=== PATIENT | male | born 1965 | race Caucasian/White ===

== ENCOUNTER 2019-01-24 08:08 | Day surgery (SDC) | payer OTHER ==
[~2019-01-24] VITALS: Ht 172.7 cm; Wt 88.6 kg
[~2019-01-24 08:08] MED LIST: AZIT250 PO; FAMO20 PO; INDO50 PO; Keflex500 MG PO; Norco 5-325 Ta1 EACH PO; TRAM50 PO
== END 2019-01-24 10:35 | disposition home or self-care (01) ==
LOC: ORSCSDS 08:08
PROVIDERS: Internal Medicine Gastroenterology
PROC: 0DBN8ZX Excision of Sigmoid Colon, Via Natural or Artificial Opening Endoscopic, Diagnostic (ICD-10-PCS; principal; 2019-01-24 09:30)
DX: Z12.11 Encounter for screening for malignant neoplasm of colon (principal); K63.5 Polyp of colon; K64.1 Second degree hemorrhoids; E78.5 Hyperlipidemia, unspecified; F17.210 Nicotine dependence, cigarettes, uncomplicated; K57.30 Diverticulosis of large intestine without perforation or abscess without bleeding
CPT/HCPCS: 88305; J2704; J7120

== ENCOUNTER 2021-01-03 14:50 | Emergency (ER) | payer OTHER ==
[~2021-01-03] VITALS: Ht 172.7 cm; Wt 79.4 kg
[~2021-01-03 14:50] MED LIST changes: +ERGO400 PO; +FISH OIL 1,2001 EAC4 PO
== END 2021-01-03 18:36 | disposition left against medical advice (07) ==
LOC: ER 14:50
DX: R50.9 Fever, unspecified (principal); R05 Cough; R51.9 Headache, unspecified; Z53.21 Procedure and treatment not carried out due to patient leaving prior to being seen by health care provider
CPT/HCPCS: 96372; 99283; J1885

== ENCOUNTER 2021-01-05 05:45 | Emergency (ER) | payer OTHER ==
[~2021-01-05] VITALS: Ht 172.7 cm; Wt 77.1 kg
[2021-01-05 07:01] LABS: BASOPHILS ABSOLUTE AUTO 0.04 K/mm3 (0.00-0.23); BASOPHILS PERCENT AUTO 0 % (0-2); EOSINOPHILS ABSOLUTE AUTO 0.17 K/mm3 (0.00-0.68); EOSINOPHILS PERCENT AUTO 2 % (0-6); Hematocrit 39.8 % (37.0-53.0); Hemoglobin 14.1 g/dL (13.5-17.5); IMMATURE GRAN ABSOLUTE AUTO 0.03 K/mm3 (0.00-0.10); IMMATURE GRAN PERCENT AUTO 0 % (0-1); LYMPHOCYTES ABSOLUTE AUTO 1.33 K/mm3 (0.84-5.20); LYMPHOCYTES PERCENT AUTO 11 % (21-46); MONOCYTES PERCENT AUTO 8 % (4-13); Mean Corpuscular HGB 32.8 pg (26.0-34.0); Mean Corpuscular HGB Conc 35.4 g/dL (31.5-36.5); Mean Corpuscular Volume 93 fL (80-100); NEUTROPHILS ABSOLUTE AUTO 9.17 K/mm3 (1.96-9.15); NEUTROPHILS PERCENT AUTO 79 % (41-73); Platelet Count 335 K/mm3 (150-400); RDW Coefficient Variation 11.7 % (11.7-14.2); RDW Standard Deviation 39.6 fL (35.1-46.3); White Blood Cell Count 11.64 K/mm3 (4.00-11.30)
[2021-01-05 07:23] LABS: Alanine Aminotransfer (ALT/SGP 27 U/L (12-78); Albumin, Blood 3.5 g/dL (3.4-5.0); Albumin/Globulin Ratio 1.1 (0.8-1.8); Alk Phos 59 U/L (50-136); Anion Gap 3 mmol/L (6-16); Aspartate Aminotrans (AST/SGOT 16 U/L (12-37); Bilirubin, Total 0.7 mg/dL (0.1-1.0); Blood Urea Nitrogen 18 mg/dL (8-24); Bun/Creatinine Ratio 25.2 (12.0-20.0); CO2, Blood 27 mmol/L (21-32); Calcium, Blood 8.7 mg/dL (8.5-10.1); Chloride, Blood 101 mmol/L (98-108); Creatinine, Blood 0.72 mg/dL (0.60-1.20); Globulin, Blood 3.1 g/dL (2.2-4.0); Glomerular Filtration Rate >60 (60-); Glucose, Blood 100 mg/dL (70-99); Sodium, Blood 131 mmol/L (136-145); Total Protein, Blood 6.6 g/dL (6.4-8.2)
[2021-01-05 07:33] LABS: Influenza A, PCR NEGATIVE (NEGATIVE); Influenza B, PCR NEGATIVE (NEGATIVE); Resp Syncytial Virus, PCR NEGATIVE (NEGATIVE); SARS-Cov-2 (COVID-19) PCR, MMC NEGATIVE (NEGATIVE)
[2021-01-05] MEDS ORDERED: PROM25 PO (09:15)
[2021-01-05] MEDS ORDERED: ZEBUTAL 50-3251 EAC1 PO (09:15)
[2021-01-05] MEDS ORDERED: Amoxicillin500 MG PO (22:16)
[2021-01-05] MEDS ORDERED: ONDA4ODT MM (22:16)
== END 2021-01-05 09:26 | disposition home or self-care (01) ==
LOC: ER 05:45
PROVIDERS: Emergency Medicine
DX: B34.9 Viral infection, unspecified (principal); Z87.891 Personal history of nicotine dependence; Z20.822 Contact with and (suspected) exposure to COVID-19
CPT/HCPCS: 0241U; 36415; 36600; 70450; 70491; 80048; 80053; 82803; 85025; 96361; 96374; 96374-59; 96375; 99284-25; A9270; J1170; J1885; J2405; J2765; J7030; J7120; Q9967

== ENCOUNTER 2021-05-05 03:04 | Observation (INO) | payer OTHER ==
[~2021-05-05] VITALS: Ht 172.7 cm; Wt 82.0 kg
[~2021-05-05 03:04] MED LIST changes: +Amoxicillin500 MG PO; +ONDA4ODT MM; +PROM25 PO; +ZEBUTAL 50-3251 EAC1 PO
[2021-05-05 03:33] LABS: BASOPHILS ABSOLUTE AUTO 0.09 K/mm3 (0.00-0.23); BASOPHILS PERCENT AUTO 1 % (0-2); EOSINOPHILS ABSOLUTE AUTO 0.31 K/mm3 (0.00-0.68); EOSINOPHILS PERCENT AUTO 3 % (0-6); Hematocrit 41.2 % (37.0-53.0); Hemoglobin 13.9 g/dL (13.5-17.5); IMMATURE GRAN ABSOLUTE AUTO 0.03 K/mm3 (0.00-0.10); IMMATURE GRAN PERCENT AUTO 0 % (0-1); LYMPHOCYTES PERCENT AUTO 29 % (21-46); MONOCYTES PERCENT AUTO 10 % (4-13); Mean Corpuscular HGB 32.5 pg (26.0-34.0); Mean Corpuscular HGB Conc 33.7 g/dL (31.5-36.5); Mean Corpuscular Volume 96 fL (80-100); Mean Platelet Volume 9.2 fL (9.1-12.4); NEUTROPHILS ABSOLUTE AUTO 5.43 K/mm3 (1.96-9.15); NEUTROPHILS PERCENT AUTO 57 % (41-73); Platelet Count 356 K/mm3 (150-400); RDW Coefficient Variation 12.2 % (11.7-14.2); RDW Standard Deviation 43.1 fL (35.1-46.3); Red Blood Cell Count 4.28 M/mm3 (4.30-5.90); White Blood Cell Count 9.46 K/mm3 (4.00-11.30)
[2021-05-05 03:53] LABS: Alanine Aminotransfer (ALT/SGP 42 U/L (12-78); Albumin, Blood 3.2 g/dL (3.4-5.0); Alk Phos 107 U/L (50-136); Anion Gap 3 mmol/L (6-16); Aspartate Aminotrans (AST/SGOT 41 U/L (12-37); Bilirubin, Total 0.3 mg/dL (0.1-1.0); Blood Urea Nitrogen 12 mg/dL (8-24); Bun/Creatinine Ratio 14.6 (12.0-20.0); CO2, Blood 28 mmol/L (21-32); Calcium, Blood 8.4 mg/dL (8.5-10.1); Chloride, Blood 109 mmol/L (98-108); Creatinine, Blood 0.82 mg/dL (0.60-1.20); Globulin, Blood 3.2 g/dL (2.2-4.0); Glomerular Filtration Rate >60 (60-); Glucose, Blood 113 mg/dL (70-99); Potassium, Blood 4.3 mmol/L (3.5-5.5); Sodium, Blood 140 mmol/L (136-145); Total Protein, Blood 6.4 g/dL (6.4-8.2); Troponin I <0.015 ng/mL (0.000-0.040)
[2021-05-05 06:36] LABS: LDL/HDL RATIO 3.1; Very Low Density Lipoprot Chol 37 mg/dL (6-32)
[2021-05-05 06:37] LABS: Cholesterol 195 mg/dL (50-200); HDL Cholesterol 39 mg/dL (>39); Low Density Lipoprotein Chol 119 mg/dL (0-110); Triglycerides 185 mg/dL (30-160)
--- NOTE | 2021-05-05 06:50 | NUR ---
ARRIVAL TO UNIT PATIENT ARRIVED TO UNIT FROM ER VIA GURNEY WITH ONE PERSONAL BELONGINGS BAG. SELF TRANSFERRED TO BED INDEPENDENTLY. C/O CHEST PAIN BUT "NOT BAD WHEN I GOT HERE". A/O, SETTLED TO ROOM, CALL LIGHT IN REACH. INDEPENDENT IN ROOM. WCTM.
[2021-05-05] MEDS ORDERED: FISH OIL 1,2001 EAC1 PO (14:35)
[2021-05-05] MEDS ORDERED: Acerola C500 MG PO (14:36)
[2021-05-05] MEDS ORDERED: ATOR40TA PO (17:09)
--- NOTE | 2021-05-05 18:22 | NUR ---
DC RN NOTE: PT A/O X 4 AT TIME OF DC. IV REMOVED FROM RAC W/NO S/S OF PHLEBITIS/INFECTION. PT EDUCATED ON DC MEDS/HEART ATTACK AND CORONARY ARTERY DISEASE. PT VU. PRESENT AT TIME OF DC. PT AMBULATED TO VEHICLE ESCORTED BY IAN THOMPSON. PT DECLINED WC TRANSPORT. PT STEADY ON FEET. BELONGINGS SENT WITH PT.
== END 2021-05-05 18:22 | disposition home or self-care (01) ==
LOC: ER 03:04 → MEDS 03:05
PROVIDERS: Emergency Medicine; ADMIT Family Medicine
DX: R07.89 Other chest pain (principal); I65.23 Occlusion and stenosis of bilateral carotid arteries; H53.8 Other visual disturbances; E78.5 Hyperlipidemia, unspecified; F17.210 Nicotine dependence, cigarettes, uncomplicated; I10 Essential (primary) hypertension
CPT/HCPCS: 36415; 71046; 78452; 80053; 80061; 84484; 85025; 93005; 93010; 93017; 93306; 93880; 96374; 96376; 99285-25; A9270; A9500; G0378; J0706; J2785; J3010

== ENCOUNTER 2021-11-19 11:38 | Day surgery (SDC) | payer OTHER ==
[~2021-11-19] VITALS: Ht 172.7 cm; Wt 88.6 kg
[~2021-11-19 11:38] MED LIST changes: +ATOR40TA PO; +Acerola C500 MG PO; +FISH OIL 1,2001 EAC1 PO
[2021-11-19] MEDS ORDERED: Aspir 8181 MG PO (11:55)
[2021-11-19] MEDS ORDERED: OXYC5 PO (11:55)
--- NOTE | 2021-11-19 14:39 | NUR ---
11/19/21 1439 Melinda Tejeda 1MG OF EPI ADDED TO EACH OF THE FIRST 3 BAGS OF LR USED FOR JOINT IRRIGATION.
== END 2021-11-19 16:30 | disposition home or self-care (01) ==
LOC: ORSCSDS 11:38
PROVIDERS: Orthopaedic Surgery
PROC: 0LS44ZZ Reposition Left Upper Arm Tendon, Percutaneous Endoscopic Approach (ICD-10-PCS; principal; 2021-11-19 13:00)
PROC: 0RNK4ZZ Release Left Shoulder Joint, Percutaneous Endoscopic Approach (ICD-10-PCS; principal; 2021-11-19 13:00)
PROC: 0LQ24ZZ Repair Left Shoulder Tendon, Percutaneous Endoscopic Approach (ICD-10-PCS; principal; 2021-11-19 13:00)
DX: M75.112 Incomplete rotator cuff tear or rupture of left shoulder, not specified as traumatic (principal); M75.22 Bicipital tendinitis, left shoulder; M75.42 Impingement syndrome of left shoulder; Z87.891 Personal history of nicotine dependence; Z79.899 Other long term (current) drug therapy; Z79.82 Long term (current) use of aspirin
CPT/HCPCS: A9270; C1713; J0171; J0690; J1100; J1885; J2250; J2405; J2704; J2710; J2795; J3010; J7120

== ENCOUNTER → 2023-10-09 | Outpatient (CLI) | payer OTHER ==
[~2023-10-09] MED LIST changes: +Aspir 8181 MG PO; +OXYC5 PO; +Pepcid40 MG PO
[2023-10-14 12:04] LABS: COTININE, URN, SCREEN Negative ng/mL (Cutoff 100)
== END ==
LOC: LAB 14:07 → LAB SHORT 14:07
PROVIDERS: Physician Assistant
DX: M19.019 Primary osteoarthritis, unspecified shoulder (principal)

== ENCOUNTER 2023-10-11 19:23 | Emergency (ER) | payer OTHER ==
[~2023-10-11] VITALS: Ht 172.7 cm; Wt 83.9 kg
[~2023-10-11 19:23] MED LIST changes: -Pepcid40 MG PO
[2023-10-11 19:51] LABS: BASOPHILS ABSOLUTE AUTO 0.11 K/mm3 (0.00-0.23); BASOPHILS PERCENT AUTO 1 % (0-2); EOSINOPHILS ABSOLUTE AUTO 0.18 K/mm3 (0.00-0.68); EOSINOPHILS PERCENT AUTO 2 % (0-6); Hematocrit 41.6 % (37.0-53.0); Hemoglobin 14.5 g/dL (13.5-17.5); IMMATURE GRAN ABSOLUTE AUTO 0.03 K/mm3 (0.00-0.10); IMMATURE GRAN PERCENT AUTO 0 % (0-1); LYMPHOCYTES ABSOLUTE AUTO 2.87 K/mm3 (0.84-5.20); LYMPHOCYTES PERCENT AUTO 26 % (21-46); MONOCYTES PERCENT AUTO 9 % (4-13); Mean Corpuscular HGB 32.4 pg (26.0-34.0); Mean Corpuscular HGB Conc 34.9 g/dL (31.5-36.5); Mean Corpuscular Volume 93 fL (80-100); Mean Platelet Volume 9.3 fL (9.1-12.4); NEUTROPHILS PERCENT AUTO 63 % (41-73); Platelet Count 346 K/mm3 (150-400); RDW Coefficient Variation 12.2 % (11.7-14.2); RDW Standard Deviation 41.4 fL (35.1-46.3); Red Blood Cell Count 4.48 M/mm3 (4.30-5.90); White Blood Cell Count 11.19 K/mm3 (4.00-11.30)
[2023-10-11 20:12] LABS: Albumin, Blood 3.8 g/dL (3.4-5.0); Albumin/Globulin Ratio 1.1 (0.8-1.8); Bilirubin, Total 0.3 mg/dL (0.1-1.0); Bun/Creatinine Ratio 18.5 (12.0-20.0); Creatinine, Blood 0.87 mg/dL (0.60-1.20); Globulin, Blood 3.4 g/dL (2.2-4.0); Potassium, Blood 3.9 mmol/L (3.5-5.5); Total Protein, Blood 7.2 g/dL (6.4-8.2)
[2023-10-12] MEDS ORDERED: Pepcid40 MG PO (00:08)
[2023-10-12 00:25] VITALS: BP 123/70
== END 2023-10-12 00:26 | disposition home or self-care (01) ==
LOC: ER 19:23
PROVIDERS: Student in an Organized Health Care Education/Training Program
DX: R07.89 Other chest pain (principal); I45.2 Bifascicular block; Z88.6 Allergy status to analgesic agent; Z88.8 Allergy status to other drugs, medicaments and biological substances; Z79.899 Other long term (current) drug therapy; Z79.82 Long term (current) use of aspirin; Z87.891 Personal history of nicotine dependence
CPT/HCPCS: 80053; 84484; 85025; 93005; 93010; 99285-25; A9270

== ENCOUNTER → 2023-10-16 | Outpatient (CLI) | payer OTHER ==
[~2023-10-16] MED LIST changes: +Pepcid40 MG PO
== END ==
LOC: LAB 07:42 → LAB SHORT 07:42
DX: M79.89 Other specified soft tissue disorders (principal)
CPT/HCPCS: 88305

== ENCOUNTER 2023-11-02 09:54 | Emergency (ER) | payer OTHER ==
[~2023-11-02] VITALS: Ht 172.7 cm; Wt 83.9 kg
[2023-11-02 10:57] LABS: BASOPHILS ABSOLUTE AUTO 0.08 K/mm3 (0.00-0.23); BASOPHILS PERCENT AUTO 1 % (0-2); EOSINOPHILS ABSOLUTE AUTO 0.23 K/mm3 (0.00-0.68); EOSINOPHILS PERCENT AUTO 3 % (0-6); Hematocrit 42.5 % (37.0-53.0); Hemoglobin 14.4 g/dL (13.5-17.5); IMMATURE GRAN ABSOLUTE AUTO 0.03 K/mm3 (0.00-0.10); IMMATURE GRAN PERCENT AUTO 0 % (0-1); LYMPHOCYTES ABSOLUTE AUTO 2.12 K/mm3 (0.84-5.20); LYMPHOCYTES PERCENT AUTO 24 % (21-46); MONOCYTES ABSOLUTE AUTO 0.56 K/mm3 (0.16-1.47); MONOCYTES PERCENT AUTO 7 % (4-13); Mean Corpuscular HGB 31.9 pg (26.0-34.0); Mean Corpuscular HGB Conc 33.9 g/dL (31.5-36.5); Mean Corpuscular Volume 94 fL (80-100); Mean Platelet Volume 9.5 fL (9.1-12.4); NEUTROPHILS ABSOLUTE AUTO 5.66 K/mm3 (1.96-9.15); NEUTROPHILS PERCENT AUTO 65 % (41-73); Platelet Count 367 K/mm3 (150-400); RDW Coefficient Variation 12.4 % (11.7-14.2); RDW Standard Deviation 43.3 fL (35.1-46.3); Red Blood Cell Count 4.52 M/mm3 (4.30-5.90); White Blood Cell Count 8.68 K/mm3 (4.00-11.30)
[2023-11-02 11:15] LABS: Albumin/Globulin Ratio 1.1 (0.8-1.8); Bilirubin, Total 0.4 mg/dL (0.1-1.0); Bun/Creatinine Ratio 14.3 (12.0-20.0); Calcium, Blood 9.3 mg/dL (8.5-10.1); Creatinine, Blood 0.91 mg/dL (0.60-1.20); Globulin, Blood 3.5 g/dL (2.2-4.0); Potassium, Blood 4.1 mmol/L (3.5-5.5); Total Protein, Blood 7.5 g/dL (6.4-8.2)
[2023-11-02 12:23] VITALS: BP 129/77
== END 2023-11-02 12:59 | disposition home or self-care (01) ==
LOC: ER 09:54
PROVIDERS: Physician Assistant
DX: R07.9 Chest pain, unspecified (principal); Z87.891 Personal history of nicotine dependence; Z88.6 Allergy status to analgesic agent; Z88.8 Allergy status to other drugs, medicaments and biological substances; Z79.899 Other long term (current) drug therapy
CPT/HCPCS: 71046; 80053; 83690; 84484; 85025; 93005; 93010; 99285-25

== ENCOUNTER 2023-11-24 07:11 | Day surgery (SDC) | payer OTHER ==
[~2023-11-24] VITALS: Ht 172.7 cm; Wt 86.2 kg
[2023-11-24] VITALS (10 sets, daily range): BP systolic 94–124; BP diastolic 48–91
[2023-11-24] MEDS ORDERED: NS 1,000 ML IV ONE ×2 (07:15→08:03)
[2023-11-24] MEDS ORDERED: Heparin Sodium 1000 Units/ML 10ML MDV ONE ×3 (07:15→08:03)
[2023-11-24] MEDS ORDERED: NS 500 ML IV ONE (07:15)
[2023-11-24] MEDS ORDERED: Nitroglycerin 2 MG/20 ML BTL ONE (07:16)
[2023-11-24] MEDS ORDERED: Prinivil10 MG PO (07:28)
[2023-11-24] MEDS ORDERED: EZET10 PO (07:33)
[2023-11-24] MEDS ORDERED: FentaNYL Citrate 50 MCG/ML 2 ML Injection ONE ×2 (08:03→08:56)
[2023-11-24] MEDS ORDERED: Midazolam HCl 1MG / ML 2ML Vial ONE ×2 (08:03→08:56)
--- NOTE | 2023-11-24 10:13 | NUR ---
PT RETURNS FROM MEDICAL EDITOR ALERT AND ORIENTED. VSS. PT. LEFT GROINS SITE WNL, NO SWELLING NO HEMATOMA NO OOZING AT THIS TIME. TENDER TO PALPATION. PT INSTRUCTED ON RECOVERY PROCESS, PT VERBALIZED UNDERSTANDING. PROVIDED ASSISTANCE WITH MEAL TRAY AND FLUIDS. ZAIRA AT THIS TIME.
[2023-11-24] MEDS ORDERED: OxyCODONE HCL 5 MG TAB ONE (10:49)
[2023-11-24] MEDS ORDERED: OxyCODONE HCL 5 MG TAB PO ONE (10:50)
--- NOTE | 2023-11-24 12:15 | NUR ---
SITE ASSESSED FREQUENTLY AND REMAINS UNCHANGED. PT. ADVANCED TO 45 DEGREES, SITTING UP IN BED EATING LUNCH. SITE REASSESSED AFTER ADJUSTING HOB AND REMAINS UNCHANGED FROM PREVIOUS ASSESSMENT, SOFT, NON TENDER, NO OOZING OR HEMATOMA.
--- NOTE | 2023-11-24 12:30 | NUR ---
DR. TELLEZ IN TO TALK WITH PT. ADDTIONAL MEDICATIONS OF PLAVIX AND XARELTO TO BE ADDED TO PT DAILY MED LIST PER DR. TELLEZ. ORDER WRITTEN AND CALLED TO [facility] PER PT REQUEST. PT VSS. DISCHARGE INSTRUCTIONS REVIEWED IN DETAIL. NO QUESTIONS. PT. SITE REMAINS UNCHAGED, PT UP TO USE BATHROOM. ABLE TO AMBULATE W.O DIFFICULTY.
[2023-11-24] MEDS ORDERED: CLOP75 PO (12:36)
[2023-11-24] MEDS ORDERED: XARELTO20 MG PO (12:36)
--- NOTE | 2023-11-24 12:45 | NUR ---
PT ABLE TO GET SELF DRESSED. IV REMOVED, CATHETER INTACT. PT L GROIN SITE RE ASSESSED AFTER PT WAS DRESSED AND REMAINS UNCHANGED FROM PREVIOUS ASSESSMENTS. PT. VSS. PT TO PICK HIM UP, ALL BELONGINGS GATHERED BY PATIENT. PT. TAKEN TO EXIT VIA WHEELCHAIR WITH DISCHARGE INSTRUCTIONS.
== END 2023-11-24 13:00 | disposition home or self-care (01) ==
LOC: MHTC 07:11
DX: I73.9 Peripheral vascular disease, unspecified (principal); E78.5 Hyperlipidemia, unspecified; Z78.9 Other specified health status; I10 Essential (primary) hypertension
CPT/HCPCS: 76937; 99152; 99153; A9270; C1714; C1725; C1753; C1760; C1769; C1887; C1894; C2623; J1644; J2250; J3010; J7030; J7050; Q9967

== ENCOUNTER 2024-04-25 06:33 | Day surgery (SDC) | payer OTHER ==
[2024-04-25] VITALS (12 sets, daily range): BP systolic 105–160; BP diastolic 75–93
[~2024-04-25] VITALS: Ht 172.7 cm; Wt 84.5 kg
[~2024-04-25 06:33] MED LIST changes: -Acerola C500 MG PO; +C COMPLEX1000 M1 PO; +CLOP75 PO; +EZET10 PO; +FISH OIL 1,0001 EA10 PO; +Lactated Ringer's 1,000 ML IV SCH; +OMEP20ER PO; +Percocet 5-3251 EACH PO; +Prinivil10 MG PO; +REVATIO10 MG/1 ML PO; +XARELTO20 MG PO
[2024-04-25] MEDS ORDERED: Midazolam HCl 1MG / ML 2ML Vial ONE (07:00)
[2024-04-25] MEDS ORDERED: propofoL 20 ML IV ONE (07:00)
[2024-04-25] MEDS ORDERED: Benzocaine Oral Spray 0.5ML UD ONE (07:01)
--- NOTE | 2024-04-25 07:14 | NUR ---
Ambulatory in Day Surgery WITH STEADY GAIT. History, Chart, Medications and Allergies reviewed before start of procedure. Patient States Post-Procedure ride home has been arranged WITH . BELONGINGS PLACED IN PT BAG AND LEFT IN PT'S BAY. Pre-Op teaching done. Pt verbalizes understanding.
--- NOTE | 2024-04-25 07:32 | NUR ---
04/25/24 0732 Carley March HISTORY, CHART, MEDICATIONS AND ALLERGIES REVIEWED BEFORE START OF PROCEDURE. PATIENT CONFIRMS NPO STATUS AND AGREES WITH SCHEDULED PROCEDURE. 3-LEAD EKG REVIEWED WITH PHYSICIAN PRIOR TO START OF PROCEDURE. MONITOR INTACT WITH CONTINUOUS PULSE OXIMETRY,CAPNOGRAPHY, 3-LEAD EKG, INTERMITTENT BP. SUPPLEMENTAL O2 TO BE TITRATED THROUGHOUT PROCEDURE TO MAINTAIN O2 SATURATION ABOVE 90%. PATIENT DETERMINED TO BE ASA APPROPRIATE FOR PROPOFOL SEDATION PRIOR TO START OF PROCEDURE BY DR. CHAMBERS. MALLAMPATI CLASS 2 AIRWAY: COMPLETE VISUALIZATION OF THE UVULA.
--- NOTE | 2024-04-25 08:23 | NUR ---
DISCHARGE NOTE PT A&OX4, VSS, BREATHING RA, NO COMPLAINTS, TOLERATING PO FLUDIS. Patient up to Ambulate independently. Gait steady.PT DRESSED INDEPENDENTLY. Discharge instructions reviewed with patient. Patient verbalizes understanding. Copy given to patient to take home. Discharged via wheelchair to private car for ride home.
== END 2024-04-25 08:19 | disposition home or self-care (01) ==
LOC: ORSCMMR 06:33 → ORD 07:30 → ORSCMMR 08:19
PROVIDERS: Internal Medicine Gastroenterology
PROC: 0DB98ZX Excision of Duodenum, Via Natural or Artificial Opening Endoscopic, Diagnostic (ICD-10-PCS; principal; 2024-04-25 07:30)
PROC: 0DB58ZX Excision of Esophagus, Via Natural or Artificial Opening Endoscopic, Diagnostic (ICD-10-PCS; principal; 2024-04-25 07:30)
PROC: 0DB48ZX Excision of Esophagogastric Junction, Via Natural or Artificial Opening Endoscopic, Diagnostic (ICD-10-PCS; principal; 2024-04-25 07:30)
PROC: 0DB68ZX Excision of Stomach, Via Natural or Artificial Opening Endoscopic, Diagnostic (ICD-10-PCS; principal; 2024-04-25 07:30)
DX: K21.00 Gastro-esophageal reflux disease with esophagitis, without bleeding (principal); R10.13 Epigastric pain; K29.70 Gastritis, unspecified, without bleeding; K44.9 Diaphragmatic hernia without obstruction or gangrene; Z86.010 Personal history of colon polyps; I73.9 Peripheral vascular disease, unspecified; I10 Essential (primary) hypertension; Z79.01 Long term (current) use of anticoagulants; Z79.899 Other long term (current) drug therapy
CPT/HCPCS: 88305; 88342; A9270; J2250; J2704; J7120

== ENCOUNTER 2024-07-14 13:14 | Inpatient (IN) | payer OTHER ==
[~2024-07-14] VITALS: Ht 172.7 cm; Wt 82.9 kg
[2024-07-14] VITALS (7 sets, daily range): BP systolic 105–146; BP diastolic 54–82
[~2024-07-14 13:14] MED LIST changes: -Lactated Ringer's 1,000 ML IV SCH
[2024-07-14] MEDS ORDERED: Norco 10-325 T1 EACH PO (13:29)
[2024-07-14] MEDS ORDERED: FentaNYL Citrate 50 MCG/ML 2 ML Injection IV PRN (13:50)
[2024-07-14] MEDS ORDERED: Acetaminophen 325 MG TABLET PO PRN (13:50)
[2024-07-14] MEDS ORDERED: FLU VACC TS2024-25(6MOS UP)/PF 45 MCG/0.5 ML SYRINGE IM SCH (13:50)
[2024-07-14] MEDS ORDERED: NS 1,000 ML IV ONE ×3 (13:51→16:34)
[2024-07-14] MEDS ORDERED: Heparin Sodium 1000 Units/ML 10ML MDV ONE (13:51)
[2024-07-14] MEDS ORDERED: Nitroglycerin 2 MG/20 ML BTL ONE (13:52)
[2024-07-14] MEDS ORDERED: NS 250 ML IV ONE (13:52)
[2024-07-14] MEDS ORDERED: HYDROcodone 5-APAP 325 TAB PO PRN (13:55)
[2024-07-14 14:41] LABS: BASOPHILS ABSOLUTE AUTO 0.06 K/mm3 (0.00-0.23); BASOPHILS PERCENT AUTO 1 % (0-2); EOSINOPHILS ABSOLUTE AUTO 0.06 K/mm3 (0.00-0.68); EOSINOPHILS PERCENT AUTO 1 % (0-6); Hematocrit 42.5 % (37.0-53.0); Hemoglobin 14.6 g/dL (13.5-17.5); IMMATURE GRAN ABSOLUTE AUTO 0.03 K/mm3 (0.00-0.10); IMMATURE GRAN PERCENT AUTO 0 % (0-1); LYMPHOCYTES ABSOLUTE AUTO 2.35 K/mm3 (0.84-5.20); LYMPHOCYTES PERCENT AUTO 23 % (21-46); MONOCYTES ABSOLUTE AUTO 0.89 K/mm3 (0.16-1.47); MONOCYTES PERCENT AUTO 9 % (4-13); Mean Corpuscular HGB 32.1 pg (26.0-34.0); Mean Corpuscular HGB Conc 34.4 g/dL (31.5-36.5); Mean Corpuscular Volume 93 fL (80-100); Mean Platelet Volume 8.9 fL (9.1-12.4); NEUTROPHILS ABSOLUTE AUTO 6.73 K/mm3 (1.96-9.15); NEUTROPHILS PERCENT AUTO 67 % (41-73); Platelet Count 356 K/mm3 (150-400); RDW Coefficient Variation 11.9 % (11.7-14.2); RDW Standard Deviation 41.3 fL (35.1-46.3); Red Blood Cell Count 4.55 M/mm3 (4.30-5.90); White Blood Cell Count 10.12 K/mm3 (4.00-11.30)
[2024-07-14 14:57] LABS: Albumin, Blood 3.7 g/dL (3.4-5.0); Albumin/Globulin Ratio 1.2 (0.8-1.8); Bilirubin, Total 0.4 mg/dL (0.1-1.0); Calcium, Blood 9.6 mg/dL (8.5-10.1); Creatinine, Blood 0.85 mg/dL (0.60-1.20); Globulin, Blood 3.1 g/dL (2.2-4.0); Total Protein, Blood 6.8 g/dL (6.4-8.2)
--- NOTE | 2024-07-14 15:16 | NUR ---
arrival to pcu patient arrived to pcu at 1322 as a direct admint via wheelchair. patient transfered to the bathroom and then into the bed independently. patient is alert and oriented x4. neuro is intact. patient is able to make needs known and uses call light appropriately. denies chest pain/pressure or shortness of breath. reports pain in right lower leg, medicated per emar. faint pedal pulse in right lower leg and heard with doppler. see admit shift assessment for further detials. admit is complete. home med rec complete. md christine in to see patient and will be taking patient back for a revasc of right lower leg. md moser in at bedside and spoke with patient. plan of care is up to date
[2024-07-14 15:33] LABS: Anti-Xa UFH, PHA Monitoring 0.33 IU/mL
[2024-07-14 15:46] LABS: International Normalized Ratio 0.97; Prothrombin Time Results 10.4 Sec (9.7-11.5)
[2024-07-14] MEDS ORDERED: Dose Adjust by Pharmacy XX STA (15:59)
[2024-07-14] MEDS ORDERED: Heparin Sodium,Porcine/0.5 NS 500 ML IV SCH (16:00)
[2024-07-14] MEDS ORDERED: Midazolam HCl 1MG / ML 2ML Vial ONE ×2 (16:03→16:28)
[2024-07-14] MEDS ORDERED: FentaNYL Citrate 50 MCG/ML 2 ML Injection ONE ×2 (16:04→16:29)
--- NOTE | 2024-07-14 18:13 | NUR ---
shift summary patient went for revasc of right leg. patient has left groin site with angio seal in place. soft nontender no bleeding or hematoma. patient at bedside when patient returned from revasc. see previous notes. plan remains up to date
[2024-07-14] MEDS ORDERED: Ezetimibe 10 MG Tab PO SCH (21:00)
[2024-07-15 00:20] VITALS: BP 113/64
[2024-07-15] MEDS ORDERED: Dose Adjust by Pharmacy XX STA ×2 (00:22→08:29)
[2024-07-15 03:00] VITALS: BP 141/96
--- NOTE | 2024-07-15 05:12 | NUR ---
SHIFT SUMMARY PT A&O X4, ABLE TO MAKE NEEDS KNOWN. VSS, AFEBRILE, SPO2 >92% RA, TELE SHOWS SR/ SB 50'S-70'S. L GROIN ANGIO SITE RECOVERED THIS SHIFT. SITE IS FREE FROM BLEEDING, REDNESS, OR HEMATOMA. HEPARIN GTT RUNNING PER ORDERS. PAIN MEDICATED PER EMAR. HE DENIES SOB OR CP/ PRESSURE AT THIS TIME. PT IS RESTING IN BED, BREATHING EVEN AND UNLABORED, CALL LIGHT IN REACH.
[2024-07-15] MEDS ORDERED: Omeprazole 20 MG CapCR PO SCH (06:00)
[2024-07-15 07:13] VITALS: BP 115/70
[2024-07-15 08:05] LABS: BASOPHILS ABSOLUTE AUTO 0.08 K/mm3 (0.00-0.23); BASOPHILS PERCENT AUTO 1 % (0-2); EOSINOPHILS ABSOLUTE AUTO 0.13 K/mm3 (0.00-0.68); EOSINOPHILS PERCENT AUTO 1 % (0-6); Hematocrit 40.7 % (37.0-53.0); Hemoglobin 13.6 g/dL (13.5-17.5); IMMATURE GRAN ABSOLUTE AUTO 0.03 K/mm3 (0.00-0.10); IMMATURE GRAN PERCENT AUTO 0 % (0-1); LYMPHOCYTES ABSOLUTE AUTO 2.12 K/mm3 (0.84-5.20); LYMPHOCYTES PERCENT AUTO 23 % (21-46); MONOCYTES ABSOLUTE AUTO 0.72 K/mm3 (0.16-1.47); MONOCYTES PERCENT AUTO 8 % (4-13); Mean Corpuscular HGB Conc 33.4 g/dL (31.5-36.5); Mean Corpuscular Volume 96 fL (80-100); Mean Platelet Volume 9.6 fL (9.1-12.4); NEUTROPHILS ABSOLUTE AUTO 6.04 K/mm3 (1.96-9.15); NEUTROPHILS PERCENT AUTO 66 % (41-73); Platelet Count 318 K/mm3 (150-400); RDW Coefficient Variation 12.1 % (11.7-14.2); RDW Standard Deviation 42.4 fL (35.1-46.3); Red Blood Cell Count 4.25 M/mm3 (4.30-5.90); White Blood Cell Count 9.12 K/mm3 (4.00-11.30)
[2024-07-15 08:13] LABS: Bun/Creatinine Ratio 19.3 (12.0-20.0); Calcium, Blood 8.8 mg/dL (8.5-10.1); Creatinine, Blood 0.73 mg/dL (0.60-1.20)
[2024-07-15] MEDS ORDERED: Aspirin 81 MG TabEC PO SCH (09:00)
[2024-07-15] MEDS ORDERED: Docosahexanoic Acid/EPA 1,000 MG CAP PO SCH (09:00)
[2024-07-15] MEDS ORDERED: Lisinopril 20 MG Tab PO SCH (09:00)
[2024-07-15] MEDS ORDERED: Ascorbic Acid 500 MG Tab PO SCH (09:00)
--- NOTE | 2024-07-15 09:50 | NUR ---
AM NOTE this rn assumed care at 0700. vital signs stable. tele sinus rhyhm 70s. patient is alert and oriented x4. neuro is intact. patient is able to make needs known and uses call light appropriately. reports pain in right lower calf, medicated from emar. denies chest pain/pressure or shortness of breath. see shift assessment for further detials. heparin drip infusing see emar. md quinteros in room and discussed plan of care. plan is for patient pain to be managed and once okay from IR can be released home
[2024-07-15] MEDS ORDERED: Rivaroxaban 10 MG Tab PO SCH (11:11)
[2024-07-15 11:22] VITALS: BP 135/77
[2024-07-15] MEDS ORDERED: XARELTO20 MG PO (15:43)
[2024-07-15] MEDS ORDERED: HYDROcodone 10-APAP 325 TAB PO SCH (16:00)
--- NOTE | 2024-07-15 17:43 | NUR ---
DISCHARGE this rn went over discharge education and medication dose increase. patient went over follow appointments. patient verbalized understanding. patient left with all belongings and in no distress at 1657.
== END 2024-07-15 16:58 | disposition home or self-care (01) | DRG 271 ==
LOC: PCU 13:14
PROVIDERS: ADMIT Family Medicine
PROC: 04CM3ZZ Extirpation of Matter from Right Popliteal Artery, Percutaneous Approach (ICD-10-PCS; principal; 2024-07-14)
PROC: 04CK3ZZ Extirpation of Matter from Right Femoral Artery, Percutaneous Approach (ICD-10-PCS; 2024-07-14)
DX: I70.221 Atherosclerosis of native arteries of extremities with rest pain, right leg (principal); I70.92 Chronic total occlusion of artery of the extremities; I77.1 Stricture of artery; R20.2 Paresthesia of skin; I10 Essential (primary) hypertension; E78.5 Hyperlipidemia, unspecified; K21.9 Gastro-esophageal reflux disease without esophagitis; Z98.890 Other specified postprocedural states; Z87.891 Personal history of nicotine dependence; Z88.8 Allergy status to other drugs, medicaments and biological substances; Z79.82 Long term (current) use of aspirin; Z79.899 Other long term (current) drug therapy
CPT/HCPCS: 36415; 37184; 37185; 37224; 75716; 75774; 76937; 80048; 80053; 85025; 85347; 85520; 85610; 85730; 93926; 94762; 99152; 99153; A9270; C1725; C1760; C1769; C1887; C1894; J1644; J2250; J3010; J7030; J7050; Q9967

== ENCOUNTER 2024-09-10 16:45 | Emergency (ER) | payer OTHER ==
[~2024-09-10] VITALS: Ht 172.7 cm; Wt 86.2 kg
[~2024-09-10 16:45] MED LIST changes: +Norco 10-325 T1 EACH PO
[2024-09-10 16:51] VITALS: BP 157/86
== END 2024-09-10 18:32 | disposition home or self-care (01) ==
LOC: ER 16:45
DX: R25.2 Cramp and spasm (principal); I10 Essential (primary) hypertension; Z88.8 Allergy status to other drugs, medicaments and biological substances; Z79.899 Other long term (current) drug therapy; Z79.82 Long term (current) use of aspirin; Z79.02 Long term (current) use of antithrombotics/antiplatelets; Z87.891 Personal history of nicotine dependence
CPT/HCPCS: 93926; 99283-25

== ENCOUNTER 2024-11-05 06:44 | Emergency (ER) | payer OTHER ==
[~2024-11-05] VITALS: Ht 172.7 cm; Wt 86.2 kg
[2024-11-05] MEDS ORDERED: MONDOXYNE NL100 MG PO (08:03)
[2024-11-05] MEDS ORDERED: PRED20 (08:03)
[2024-11-05] MEDS ORDERED: NEURONTIN300 MG PO (08:03)
[2024-11-05] MEDS ORDERED: LEVOCETIRIZINE D5 MG PO (08:05)
[2024-11-05 09:14] LABS: BASOPHILS ABSOLUTE AUTO 0.07 K/mm3 (0.00-0.23); BASOPHILS PERCENT AUTO 1 % (0-2); EOSINOPHILS ABSOLUTE AUTO 0.08 K/mm3 (0.00-0.68); EOSINOPHILS PERCENT AUTO 1 % (0-6); Hematocrit 42.7 % (37.0-53.0); Hemoglobin 14.6 g/dL (13.5-17.5); IMMATURE GRAN ABSOLUTE AUTO 0.03 K/mm3 (0.00-0.10); IMMATURE GRAN PERCENT AUTO 0 % (0-1); LYMPHOCYTES ABSOLUTE AUTO 2.14 K/mm3 (0.84-5.20); LYMPHOCYTES PERCENT AUTO 21 % (21-46); MONOCYTES PERCENT AUTO 7 % (4-13); Mean Corpuscular HGB 31.5 pg (26.0-34.0); Mean Corpuscular HGB Conc 34.2 g/dL (31.5-36.5); Mean Corpuscular Volume 92 fL (80-100); NEUTROPHILS ABSOLUTE AUTO 7.18 K/mm3 (1.96-9.15); NEUTROPHILS PERCENT AUTO 70 % (41-73); Platelet Count 401 K/mm3 (150-400); RDW Coefficient Variation 11.9 % (11.7-14.2); RDW Standard Deviation 40.2 fL (35.1-46.3); Red Blood Cell Count 4.64 M/mm3 (4.30-5.90)
[2024-11-05 09:23] LABS: International Normalized Ratio 1.29; Prothrombin Time Results 13.5 Sec (9.7-11.5)
[2024-11-05 09:28] LABS: Albumin, Blood 3.9 g/dL (3.4-5.0); Albumin/Globulin Ratio 1.1 (0.8-1.8); Bilirubin, Total 0.2 mg/dL (0.1-1.0); Bun/Creatinine Ratio 15.7 (12.0-20.0); Calcium, Blood 9.3 mg/dL (8.5-10.1); Creatinine, Blood 0.7 mg/dL (0.60-1.20); Globulin, Blood 3.5 g/dL (2.2-4.0); Total Protein, Blood 7.4 g/dL (6.4-8.2)
[2024-11-05 09:30] VITALS: BP 118/67
== END 2024-11-05 11:29 | disposition home or self-care (01) ==
LOC: ER 06:44
PROVIDERS: Student in an Organized Health Care Education/Training Program
DX: I65.21 Occlusion and stenosis of right carotid artery (principal); I10 Essential (primary) hypertension; E78.5 Hyperlipidemia, unspecified; Z87.891 Personal history of nicotine dependence; Z79.82 Long term (current) use of aspirin; Z79.899 Other long term (current) drug therapy; Z88.8 Allergy status to other drugs, medicaments and biological substances
CPT/HCPCS: 70450; 70496; 70498; 80053; 85025; 85610; 85730; 99284-25; Q9967

== ENCOUNTER 2025-05-28 10:30 | Emergency (ER) | payer OTHER ==
[~2025-05-28] VITALS: Ht 172.7 cm; Wt 83.9 kg
[~2025-05-28 10:30] MED LIST changes: +LEVOCETIRIZINE D5 MG PO; +MONDOXYNE NL100 MG PO; +NEURONTIN300 MG PO; +PRED20
[2025-05-28 11:01] VITALS: BP 169/89
== END 2025-05-28 15:06 | disposition home or self-care (01) ==
LOC: ER 10:30
DX: T82.848A Pain due to vascular prosthetic devices, implants and grafts, initial encounter (principal); M79.604 Pain in right leg; I10 Essential (primary) hypertension; E78.5 Hyperlipidemia, unspecified; Z95.820 Peripheral vascular angioplasty status with implants and grafts; Z87.891 Personal history of nicotine dependence; Z88.8 Allergy status to other drugs, medicaments and biological substances; Z88.6 Allergy status to analgesic agent; Z79.899 Other long term (current) drug therapy
CPT/HCPCS: 93926; 99283-25

== ENCOUNTER 2025-07-23 06:02 | Emergency (ER) | payer OTHER ==
[~2025-07-23] VITALS: Ht 172.7 cm; Wt 86.2 kg
[2025-07-23 06:37] VITALS: BP 128/97
[2025-07-23] MEDS ORDERED: AMOX-CLAV250 MG/54 PO (08:41)
[2025-07-23] MEDS ORDERED: BETASEPT118 M1 MT (08:44)
== END 2025-07-23 08:57 | disposition home or self-care (01) ==
LOC: ER 06:02
DX: K04.7 Periapical abscess without sinus (principal); K02.9 Dental caries, unspecified; I10 Essential (primary) hypertension; E78.5 Hyperlipidemia, unspecified; K21.9 Gastro-esophageal reflux disease without esophagitis; Z88.8 Allergy status to other drugs, medicaments and biological substances; Z87.891 Personal history of nicotine dependence
CPT/HCPCS: 41800; 99282-25

== ENCOUNTER 2025-09-28 23:32 | Emergency (ER) | payer OTHER ==
[~2025-09-28] VITALS: Ht 175.3 cm; Wt 95.2 kg
[~2025-09-28 23:32] MED LIST changes: +AMOX-CLAV250 MG/54 PO; +BETASEPT118 M1 MT
[2025-09-29 00:34] LABS: BASOPHILS ABSOLUTE AUTO 0.10 K/mm3 (0.00-0.23); BASOPHILS PERCENT AUTO 1 % (0-2); EOSINOPHILS ABSOLUTE AUTO 0.32 K/mm3 (0.00-0.68); EOSINOPHILS PERCENT AUTO 3 % (0-6); Hematocrit 43.8 % (37.0-53.0); Hemoglobin 14.8 g/dL (13.5-17.5); IMMATURE GRAN ABSOLUTE AUTO 0.02 K/mm3 (0.00-0.10); IMMATURE GRAN PERCENT AUTO 0 % (0-1); LYMPHOCYTES ABSOLUTE AUTO 4.21 K/mm3 (0.84-5.20); LYMPHOCYTES PERCENT AUTO 38 % (21-46); MONOCYTES ABSOLUTE AUTO 0.91 K/mm3 (0.16-1.47); MONOCYTES PERCENT AUTO 8 % (4-13); Mean Corpuscular HGB Conc 33.8 g/dL (31.5-36.5); Mean Corpuscular Volume 95 fL (80-100); NEUTROPHILS ABSOLUTE AUTO 5.59 K/mm3 (1.96-9.15); NEUTROPHILS PERCENT AUTO 50 % (41-73); NRBC ABSOLUTE 0.00 K/mm3 (0.00-0.02); NRBC Auto 0.0 /100 WBC (0.0-0.2); Platelet Count 403 K/mm3 (150-400); RDW Coefficient Variation 12.5 % (11.7-14.2); RDW Standard Deviation 42.9 fL (35.1-46.3)
[2025-09-29 00:59] LABS: Alanine Aminotransfer (ALT/SGP 44.0 U/L (12-78); Albumin, Blood 3.7 g/dL (3.4-5.0); Albumin/Globulin Ratio 1.1 (0.8-1.8); Anion Gap 8.0 mmol/L (3-11); Aspartate Aminotrans (AST/SGOT 41.0 U/L (12-37); Bilirubin, Total 0.5 mg/dL (0.1-1.0); Blood Urea Nitrogen 16.0 mg/dL (8-24); CO2, Blood 27.0 mmol/L (21-32); Calcium, Blood 8.6 mg/dL (8.5-10.1); Chloride, Blood 108.0 mmol/L (98-108); Creatinine, Blood 0.77 mg/dL (0.60-1.20); Globulin, Blood 3.5 g/dL (2.2-4.0); Glucose, Blood 134.0 mg/dL (70-99); Potassium, Blood 4.2 mmol/L (3.5-5.5); Sodium, Blood 139.0 mmol/L (136-145); Thyroid Stimulating Hormone 1.54 uIU/mL (0.360-4.800); Total Protein, Blood 7.2 g/dL (6.4-8.2)
[2025-09-29] MEDS ORDERED: OxyCODONE 5 mg/Acetamin 325 mg TABLET PO ONE (03:00)
[2025-09-29 03:26] VITALS: BP 148/73
[2025-09-29] MEDS ORDERED: Zestril30 MG PO (03:40)
== END 2025-09-29 03:51 | disposition home or self-care (01) ==
LOC: ER 23:32
PROVIDERS: Student in an Organized Health Care Education/Training Program
DX: R07.89 Other chest pain (principal); I10 Essential (primary) hypertension; F17.210 Nicotine dependence, cigarettes, uncomplicated; Z79.899 Other long term (current) drug therapy; Z88.5 Allergy status to narcotic agent; Z88.8 Allergy status to other drugs, medicaments and biological substances
CPT/HCPCS: 71046; 80053; 82550; 84439; 84443; 84484; 85025; 99285-25; A9270